=== PATIENT | female | born 1965 | race Caucasian/White ===

== ENCOUNTER 2016-12-02 06:15 | Day surgery (SDC) | payer OTHER ==
[2016-11-28 17:55] LABS: HEMOGLOBIN 13.4 g/dL (12.0-16.0)
[2016-11-28 17:56] LABS: HEMATOCRIT 39.4 % (36.0-48.0)
[2016-11-28 18:13] LABS: BUN (BLOOD UREA NITROGEN) 21 MG/DL (6-23); CHLORIDE, SERUM 99 MMOL/L (96-112); CO2 (CARBON DIOXIDE) 29 MMOL/L (24-34); GFR AFRICAN AMERICAN 51 ML/MIN (>=60); GFR NON AFRICAN AMERICAN 44 ML/MIN (>=60); POTASSIUM, SERUM 4.2 MMOL/L (3.5-5.3); SODIUM, SERUM 136 MMOL/L (135-148)
[2016-11-29 10:10] LABS: GLUCOSE, SERUM 420 MG/DL (60-99)
--- NOTE | ~2016-12-02 | OP ---
Record Of Operation [facility] [address] [place]. [address] NAME: PHILLY MARIE : 69 STATUS : [facility]#: [id number] AGE: 51 ADM/REG DATE : 12/02/16 MR#: [id number] REPORT SERV DATE: 12/02/16 DICTATED BY: MIKAL MCGUIRE DATE: 12/02/16 REPORT STATUS : Draft TRANSCRIBED BY: LEROY DATE: 12/02/16 DATE OF PROCEDURE: 12/02/2016 PREOPERATIVE DIAGNOSIS: Chronic maxillary and ethmoid sinusitis with deviated nasal septum and left nasal mass. POSTOPERATIVE DIAGNOSIS: Chronic maxillary and ethmoid sinusitis with deviated nasal septum and left nasal mass. PROCEDURE: Bilateral endoscopic maxillary antrostomy with left total ethmoidectomy and septoplasty. SURGEON: Rick Mcguire M.D. ANESTHESIA: General endotracheal. ESTIMATED BLOOD LOSS: 100 mL. INTRAOPERATIVE FLUIDS: 1 liter of crystalloid. INTRAOPERATIVE FINDINGS: Polypoid disease arising from the left middle meatus. While the lesion in the nose had looked somewhat suspicious in the office, in the operating room, particularly upon removal of the mass, it was clear that this was a simple polyp and no frozen section was obtained. A right-sided nasal septal deflection was present, limiting access to the right middle meatus. A septoplasty was performed to gain access to the right middle meatus. OPERATIVE PROCEDURE: The patient was identified in the holding room and transported to the operating room. In the operating room, the patient was placed on the operating table in the supine position. Following induction of anesthesia, the patient was intubated without difficulty. The septum was injected with 1% lidocaine with 1:100,000 epinephrine. Afrin- soaked pledgets were placed to the nose, bilaterally. The patient was then prepped and draped in preparation for her nasal surgery. With the right-sided nasal septal deflection, there was limited access to the right middle meatus. I did, therefore, initiate the surgery on the left side. A moderate-sized polyp was identified in the anterior middle meatus and this was removed. Upon removing the mass, it was clear that this was an inflammatory polyp and no frozen section was obtained. This did allow access to the uncinate process on the left side. The uncinate process was injected with 1% lidocaine with 1:100,000 epinephrine. The uncinate process was removed. Additional bone and soft tissue was removed with the use of the sinus shaving instrumentation to identify the natural maxillary sinus ostium. The natural maxillary sinus ostium was enlarged removing tissue posteriorly and inferiorly. Examination of the sinus with the 30-degree scope revealed mild inflammation of the maxillary sinus mucosa with no purulent drainage or debris identified. The ethmoid air cells were then opened using blunt dissection. There was a moderate amount of inflammatory tissue lining in the ethmoid sinuses. This dissection carried posteriorly to the face of the sphenoid. Dissection was then carried along the skull base for removal of the more Record Of Operation [facility] [address] [place]. [address] NAME: PHILLY MARIE : 69 STATUS : [facility]#: [id number] AGE: 51 ADM/REG DATE : 12/02/16 MR#: [id number] REPORT SERV DATE: 12/02/16 DICTATED BY: MIKAL MCGUIRE DATE: 12/02/16 REPORT STATUS : Draft TRANSCRIBED BY: LEROY DATE: 12/02/16 anterior ethmoid air cells. With the assistance of the 30- and 70-degree scope, additional bone and soft tissue was removed from the area of the nasal frontal recess. Upon removing this tissue, a wide opening was identified into the left frontal sinus and no further surgery was undertaken at this point. A septoplasty was then performed to improve access to the right middle meatus. A Heber incision was created in the left side of the nose. Mucoperichondrial flap was developed and extended posteriorly over the bony cartilaginous junction. An incision was created through the quadrangular cartilage, leaving a greater than 1 cm caudal strut. A mucoperichondrial flap was then developed in similar fashion in the right side of the nose. There was a strip of deflected cartilage removed from the floor of the nose, removing a width of approximately 8 mm of cartilage from this area. The quadrangular cartilage was then divided from the bony nasal septum, leaving a strong dorsal attachment. This did allow the remaining quadrangular cartilage to return to the midline, and no further cartilaginous resection was required. There was a sharp deformity of the bony nasal septum to the right side at the junction of the perpendicular plate of the ethmoid and the vomer which was resected. There was a persistent spur of bone along the floor of the nose related to hypertrophic bone along the nasal crest, which was removed with the use of an osteotome. The flaps were placed and the septum was noted to be in the midline. The O'Kean incision was closed with interrupted 4-0 chromic suture. A quilting stitch was placed. With the septum returned to the midline, there was marked improvement to access to the right middle meatus. A right endoscopic maxillary antrostomy was then performed in similar fashion that described on the left side. Once again, there was mild inflammation of the mucosa within the maxillary sinus with no purulent drainage or debris identified. At the end of the operative procedure, there was no significant bleeding. Stammberger dressing was applied to the middle meatus on the left side. Rolled Gelfoam was then placed between the middle turbinate and lateral nasal wall, bilaterally. The inferior turbinates were outfractured. Kelley splints were applied to the nose. The patient was subsequently awakened from anesthesia, extubated in the operating room, transported to the recovery room in good condition. The patient tolerated the procedure well. There were no apparent complications. SPECIMENS: Included bilateral maxillary and left ethmoid sinus contents with nasal septal bone and cartilage. TF/MODL Mikal Mcguire M.D. / [id number] CC: Colton Castellon M.D.
[~2016-12-02 06:15] MED LIST: AMARYL2 PO; ATEN50 PO; CELEXA40 MG PO; CYMBALTA60 PO; GLUCOPHAGE1000 MG PO; KLOR-CON 1010 MEQ PO; L20 PO; NEUR300 PO; PERCOCET 10/3251 TAB PO; PRAVACHOL40 MG PO; PRIN10 PO; TRAZODONE50 MG OR; ZOCOR20 PO
[2016-12-02 06:53] LABS: CALCIUM, SERUM 8.8 MG/DL (8.5-10.4); CHLORIDE, SERUM 100 MMOL/L (96-112); CO2 (CARBON DIOXIDE) 26 MMOL/L (24-34); CREATININE 1.43 MG/DL (0.55-1.02); GFR AFRICAN AMERICAN 50 ML/MIN (>=60); GFR NON AFRICAN AMERICAN 43 ML/MIN (>=60); SODIUM, SERUM 135 MMOL/L (135-148)
[2016-12-02 06:54] LABS: BUN (BLOOD UREA NITROGEN) 34 MG/DL (6-23); GLUCOSE, SERUM 233 MG/DL (60-99)
== END 2016-12-02 14:19 | disposition home or self-care (01) ==
LOC: SDC 06:15
PROVIDERS: Otolaryngology
PROC: 09BV4ZZ Excision of Left Ethmoid Sinus, Percutaneous Endoscopic Approach (ICD-10-PCS; 2016-12-02)
PROC: 099R4ZZ Drainage of Left Maxillary Sinus, Percutaneous Endoscopic Approach (ICD-10-PCS; 2016-12-02)
PROC: 099Q4ZZ Drainage of Right Maxillary Sinus, Percutaneous Endoscopic Approach (ICD-10-PCS; 2016-12-02)
PROC: 09SM0ZZ Reposition Nasal Septum, Open Approach (ICD-10-PCS; principal; 2016-12-02 07:15)
DX: J30.9 Allergic rhinitis, unspecified (principal); J32.2 Chronic ethmoidal sinusitis; J32.0 Chronic maxillary sinusitis; J34.2 Deviated nasal septum; E11.9 Type 2 diabetes mellitus without complications; I10 Essential (primary) hypertension; E66.9 Obesity, unspecified; G47.33 Obstructive sleep apnea (adult) (pediatric); F17.200 Nicotine dependence, unspecified, uncomplicated; F41.9 Anxiety disorder, unspecified; F32.9 Major depressive disorder, single episode, unspecified; Z99.81 Dependence on supplemental oxygen; Z98.51 Tubal ligation status; Z98.890 Other specified postprocedural states
CPT/HCPCS: 80048; 81003; 82962; 85014; 85018; 88305; 93005; A9270-GY; J0295; J2250; J2370; J2405; J2710; J3010